=== PATIENT | male | born 1990 | race Caucasian/White ===

== ENCOUNTER 2021-03-15 14:24 | Outpatient (REF) | payer MEDICAID, SELFPAY ==
--- NOTE | ~2021-03-15 | XR_ITS ---
EXAMINATION: XR LUMBOSACRAL SPINE WITH OBLIQUES CLINICAL INFORMATION: Low back pain COMPARISON: None TECHNIQUE: AP, both oblique, and lateral views of the lumbar spine. Lateral view of the lumbosacral junction. FINDINGS: Bone alignment is normal. No fracture or dislocation is seen. Disc spaces are normal. There is mild degenerative spondylosis at L1-L2. The facet joints are normal. No pars defect is seen. XR/XR lumbar spine 4V min IMPRESSION: Mild degenerative spondylosis at L1-L2.
[2021-03-15 16:39] LABS: Hematocrit 46.1 % (42-52); Hemoglobin 15.8 g/dl (14.0-18.0); Mean Corpuscular HGB Conc 34.3 g/dl (31.0-36.0); Mean Corpuscular Hemoglobin 32.2 pg (27.0-33.0); Mean Corpuscular Volume 94.1 fL (80-98); Mean Platelet Volume 10.5 fL (9.4-12.4); Platelet Count 238 X10*3/uL (160-400); Red Cell Distribution Width 12.1 % (11.0-16.0); White Blood Count 10.6 X10*3/uL (4.8-10.8)
[2021-03-15 17:41] LABS: Alanine Aminotransferase 22 U/L (0-40); Albumin Level 4.6 g/dL (3.5-5.0); Alkaline Phosphatase 76 U/L (39-117); Anion Gap 15 (12-20); Aspartate Amino Transferase 16 U/L (5-37); Bilirubin Total 0.4 mg/dL (0.0-1.0); Blood Urea Nitrogen 11 mg/dL (9-16); Carbon Dioxide 33 mmol/L (22-29); Chloride 99 mmol/L (96-108); Estimated Glomerular Filt Rate > 60; Glucose Random 81 mg/dL (60-115); Potassium 4.1 mmol/L (3.3-5.1); Sodium 143 mmol/L (135-145); Total Protein 7.1 g/dL (6.5-8.0)
[2021-03-15 18:03] LABS: Thyroid Stimulating Hormone 0.78 uIU/mL (0.32-4.0)
[2021-03-16 04:20] LABS: HIV AB/AG Nonreactive (Nonreactive); HIV Num 1 0.05 S/CO (0.00-0.99)
== END 2021-03-15 14:25 | disposition home or self-care (01) ==
LOC: HO.HMGCLDS 14:24
PROVIDERS: PCP Internal Medicine; Visit Provider Internal Medicine
DX: G89.29 Other chronic pain (principal); M54.5 Low back pain; R45.4 Irritability and anger
CPT/HCPCS: 36415; 72110; 80053; 84443; 85027; 87389

== ENCOUNTER 2023-07-17 17:23 | Emergency (ER) | payer MEDICAID, SELFPAY ==
[2023-07-17 17:55] VITALS: BP 136/74; PULSE 100; RESP 16; TEMP 36.6; O2SAT 96; BMI 20.2
--- NOTE | 2023-07-17 17:59 | ED.SKABFB ---
HPI - Skin/Abscess/Foreign Bdy General Chief complaint: Wound/Laceration Stated complaint: lacerations on R hand Time Seen by Provider: 07/17/23 22:13 Source: patient Mode of arrival: ambulatory Limitations: no limitations History of Present Illness HPI narrative: 32-year-old male presents to ED for right hand laceration by blocking hand from glass falling onto his right upper extremity. Patient states glass cut knuckle between 1st and 2nd finger. Patient states complete range of motion of finger. Patient denies any numbness/tingling. Patient denies any other trauma. Patient unknown when last tetanus shot. Related Data Previous Rx's Medication Instructions Recorded cephalexin 500 mg capsule 500 mg PO QID 7 days #28 caps 07/17/23 Allergies Allergy/AdvReac Type Severity Reaction Status Date / Time No Known Allergies Allergy Verified 07/17/23 17:55 [No Known Allergies*] Review of Systems Review of Systems: Right hand laceration Yes all other systems are reviewed and are negative [facility] Social History Social History Advance Directives: No Advance Directives Information Provided: No Physical Exam Vital Signs: Vital Signs: Last Vital Signs Temp 98 F 07/17/23 22:33 Pulse 90 07/17/23 22:33 Resp 18 07/17/23 22:33 BP 148/88 H 07/17/23 22:33 Pulse Ox 97 07/17/23 22:33 O2 Del Method Room Air 07/17/23 22:33 BMI result Body Mass Index 20.2 Const: General: cooperative, healthy appearing, comfortable, no acute distress, well developed and alert Orientation/consciousness: oriented to person, oriented to place, oriented to time and patient oriented x3 HEENT: Head: Yes normal to inspection, Yes No palpable skull fracture present, Yes normocephalic and Yes atraumatic Eyes: General: appearance normal, both eyes and all related structures Neck: Neck: Yes normal visual inspection, Yes full ROM, Yes no lymphadenopathy, Yes no meningeal signs, Yes trachea midline, Yes supple, No anterior neck swelling and No tender Chest: Chest palpation & inspection: normal inspection of the chest and normal palpation of entire chest wall Resp: Effort & Inspection: normal respiratory effort and able to speak in complete sentences Auscultation: clear to auscultation bilaterally GI: Inspection: Yes normal to inspection and No abdominal wall ecchymosis Palpation (GI): Soft to palpation, not firm, nontender, no guarding and not rigid : General: No CVA tenderness and Yes no CVA tenderness Back/Spine/Pelvis: Back: no CVA tenderness, No CVA tenderness and No sacral edema Skin: Other: right hand laceration Neuro: General: oriented to person, oriented to place, oriented to time, patient oriented x3, gait normal, tone normal, moves all extremities, Normal light touch and pain sensation, no meningeal signs and no focal motor deficits Extrem: General: Yes normal to inspection and Yes full ROM Hand/finger images: 1. superficical laceration. bleeding controlled. Negative for signs of nerve/tendon injury. Motor/neuro/vascular exam of extremity intact. rest of extremity is normal. 2. superficical laceration. bleeding controlled. Negative for signs of nerve/tendon injury. Motor/neuro/vascular exam of extremity intact. rest of extremity is normal. Psych: Appearance: grossly normal and well kempt Course Course Course Narrative: RME - 32 yo right hand dominant male presents to the ER for evaluation of a laceration to his right hand pain after a mirror fell onto it. has full ROM of the 1st and 2nd digits. Plan: tdap, wound repair Medications Administered Discontinued Medications Generic Name Dose Route Start Last Admin Trade Name Freq PRN Reason Stop Dose Admin Diphtheria/Tetanus/Acell Pertussis 0.5 ml 07/17/23 17:59 07/17/23 22:28 Diphth,Pertus(Acell),Tet Adult 0.5 Ml Syringe IM 07/17/23 18:00 0.5 ml .ONCE ONE Administration Lidocaine HCl 5 ml 07/17/23 17:59 07/17/23 22:44 Lidocaine Hcl 1 % Mpf 5 Ml Vial SUBCUT 07/17/23 18:00 5 ml ONCE ONE Administration Lidocaine HCl 5 ml 07/17/23 22:13 07/17/23 22:44 Lidocaine Hcl 1 % Mpf 5 Ml Vial INFILTRATI 07/17/23 22:14 5 ml ONCE ONE Administration Medical Decision Making Medical Decision Making [facility] Narrative: 32-year-old male with right hand laceration with complete range of motion. Motor/ neuro side after exam intact. Laceration caused by blocking glass/ Stephanie falling onto him from garbage. Patient denies any other trauma. Laceration cleaned with sterile saline and betadine iodine. Anestheized with 8 ml lidocaine 1percent. monofiallment size 4 used. first laceraiton has 5 sutures and smaller laceration had 3 stiches. Differential Diagnosis Differential Diagnoses: The differential diagnosis associated with the presentation includes (laceratoin, fracture, foreign body, nerve/tendon injury) Admission/Observation Consideration of admission/observation: Escalation of care including admission/observation considered Independent Historian Clinical information obtained from an independent historian. History obtained from or confirmed by: Parent (mother) External Record Review External record reviewed: Other (prior ED visit) Tests considered The following testing was considered but not selected: xray Prescription Management I considered prescription management with: Antibiotic Discharge Plan Discharge Clinical Impression: Laceration Patient Disposition: Home, Self-Care Instructions: Laceration (ED) Additional Instructions: return to the ED immediately for any redness, swelling, pus discharge, foul odor, bluish black discoloration, inability to move finger, hotness, coldness, or any other concerning symptoms. Sutures should be removed in 10 days at urgent care, PCP, or OUr ED. Prescriptions: New cephalexin 500 mg capsule 500 mg PO QID 7 Days Qty: 28 0RF Stand Alone Forms: Work/School Release Interventions: ED Discharge Assessment Last Done: 07/17/23 23:56 Discharge Date/Time: 07/17/23 23:57 Print Language: Turkish
[2023-07-17 20:23] VITALS: BP 146/94; PULSE 98; O2SAT 97
[2023-07-17] MEDS: Diphth,Pertus(ACell),Tet Adult 0.5 ML SYRINGE IM (22:28)
[2023-07-17 22:33] VITALS: BP 148/88; PULSE 90; RESP 18; TEMP 36.6; O2SAT 97
[2023-07-17] MEDS: Lidocaine HCl 1 % MPF 5 ML VIAL INFILTRATI (22:44)
[2023-07-17] MEDS: Lidocaine HCl 1 % MPF 5 ML VIAL SUBCUT (22:44)
--- NOTE | 2023-07-17 23:18 | PC.NURSE ---
8 stitches sutured into right hand (5 sutures for 1 laceration, 3 sutures for the 2nd laceration). Pt tolerated procedure well. Lidocaine administered to lacerations/wounds prior to suturing and tolerated well. Pt was anxious initially, but able to be calmed with verbal queues, assisted by parent at bedside. Sutured with 4-0 by AMOR Hernández.
== END 2023-07-17 23:57 | disposition home or self-care (01) ==
PROVIDERS: Emergency Provider Internal Medicine
DX: S61.411A Laceration without foreign body of right hand, initial encounter (principal); S60.511A Abrasion of right hand, initial encounter; W25.XXXA Contact with sharp glass, initial encounter; Y93.9 Activity, unspecified; Y92.9 Unspecified place or not applicable; Y99.9 Unspecified external cause status; Z23 Encounter for immunization
CPT/HCPCS: 12002; 90471; 90715; 99283; 99284